=== PATIENT | female | born 1990 | race Caucasian/White ===

== ENCOUNTER 2018-02-03 05:26 | Inpatient (IN) | payer OTHER ==
[~2018-02-03] VITALS: Ht 167.6 cm; Wt 88.5 kg
[2018-02-03 09:44] VITALS: BP 116/58
--- NOTE | 2018-02-03 10:17 | Operative Report ---
Operative/Inv Procedure Report Surgery Date: 02/03/18 Name of Procedure: Primary low transverse Pre-Operative Diagnosis: Abdominal cerclage in place Post-Operative Diagnosis: Same Estimated Blood Loss: 400 mL Surgeon/Pearl Hand: Eloisa KYLE,Mp Parker MD Anesthesia: block Urine Output: valentin Drains: none Specimens: placenta Operative/Procedure Note Note: After the induction of spinal anesthesia the patient was placed in the left lateral tilt position Valentin catheter was placed and heart rate was noted to be 144 bpm after testing for adequacy of anesthesia a Pfannenstiel incision was made in the skin and carried down sharply to the fascia hemostasis was achieved with electrocautery. The Fascia was incised in the midline sharply and the incision was carried out laterally sharply. The fascia was divided from the underlying rectus muscles in the superior and inferior direction sharply. The rectus muscle bundles were divided in the midline sharply. A bladder flap was created on the lower uterine segment. The lower uterine segment was entered in the midline sharply and the incision was carried out laterally bluntly. was delivered through thin meconium stained amnionic fluid vertex position atraumatically cord was doubly clamped and cut and the infant was handed to the pediatric attendant. The placenta was manually extracted and the interior of the uterus was wiped clean with wet laps. The uterus was externalized. The uterine incision was closed in 2 layers the first a running locking stitch the second an imbricating over the first 0 Polysorb sutures were used after checking for hemostasis the uterus was returned to its normal anatomic position the abdominal/perineal cavity was irrigated copiously once again the uterus was checked for hemostasis which was judged to be excellent. The circlage was noted to be intact and was left in place for subsuquent pregnancies.The parietal peritoneum was reapproximated in a simple running fashion with 0 Polysorb suture , subfascial planes were checked for hemostasis which was judged to be excellent. Fascia was then closed with 2 simple running sutures overlapping in the midline. Subcuticular tissues were irrigated copiously and hemostasis was achieved with electrocautery. A subcuticular Omaira's fascia which was placed in a simple running fashion of 2-0 Polysorb. The skin was closed with gage. Her uterus was expressed of a small amount of blood. The only drain left at the end of the procedure was a Valentin catheter. Discharge Disposition: room
[2018-02-04 09:02] LABS: ABSOLUTE BASOPHIL COUNT 0 /CUMM (0.0-0.2); ABSOLUTE EOSINOPHIL COUNT 0.1 /CUMM (0.0-0.7); ABSOLUTE GRANULOCYTE CT 4.4 /CUMM (1.4-6.5); ABSOLUTE LYMPH COUNT 1.6 /CUMM (1.2-3.4); ABSOLUTE MONOCYTE COUNT 0.5 /CUMM (0.10-0.60); BASOPHIL % 0.2 % (0.0-2.0); MEAN CORPUSCULAR HGB 28.9 PG (27.0-31.0); MEAN CORPUSCULAR HGB CONC 34.4 G/DL (33.0-37.0); MEAN PLATELET VOLUME 7.7 FL (7.4-10.4); PLATELET COUNT 182 /CUMM (130-400); RBC DISTRIBUTION WIDTH 13.9 % (11.5-14.5); RED BLOOD CELL CT 2.97 /CUMM (4.20-5.40); WHITE BLOOD CELL COUNT 6.6 /CUMM (4.8-10.8)
--- NOTE | 2018-02-04 15:25 | PN- OBGYN ---
Surgical Brief Attending Note Brief Attending Note: pt feeling well. pain well controlled. amb / void / jose po. +flatus. no bazan / cp / sob. no n/v. +bf. afeb, v/ss nad abd soft nt nd ff inc c/d/i w/ clips camilo min lochia ext nt +1 b/l le ed hct 25 pod 1 s/p prim c/s for abd cerclage in situ, doing well -enc oob / amb -cont routine pop care -fe, colace, pnv
--- NOTE | 2018-02-05 15:06 | PN- OBGYN ---
Surgical Brief Attending Note Brief Attending Note: pt feeling well. pain well controlled w/ motrin and percocet. amb / void / jose po. +flatus. +bf. no bazan / cp / sob / dizziness. pt desires d/c home in early am. afeb, v/ss nad abd soft nt nt ff inc c/d/i w/ clips camilo min lochia ext nt +1 b/l le ed A/P pod 1 s/p prim c/s, doing well -cont routine pop care -rx for motrin, percocet, ferralet, colace sent to pharm electronically -precautions and d/c instructions reviewed -ant d/c home in am -rto 2 wks post-op check, then 6 wks
[2018-02-06] MEDS ORDERED: PERCOCET 5-3251 EACH PO (10:53)
[2018-02-06] MEDS ORDERED: FERROUS SULFAT325 M2 PO (10:53)
[2018-02-06] MEDS ORDERED: IBUPROFEN800 M1 PO (10:53)
[2018-02-06] MEDS ORDERED: DOCUSATE SODIU100 M3 PO (10:53)
== END 2018-02-06 11:20 | DRG 540 ==
LOC: GNO 05:26
PROVIDERS: Obstetrics & Gynecology
PROC: 10D00Z1 Extraction of Products of Conception, Low, Open Approach (ICD-10-PCS; principal; 2018-02-03)
DX: O34.33 Maternal care for cervical incompetence, third trimester (principal); Z3A.39 39 weeks gestation of pregnancy; Z37.0 Single live birth; O77.0 Labor and delivery complicated by meconium in amniotic fluid
CPT/HCPCS: GNOS; 36415; 81001; 86920; 86922; 87086; J0690; J1885; J7120